=== PATIENT | female | born 1960 | race Caucasian/White ===

== ENCOUNTER 2016-07-26 20:15 | Inpatient (IN) | payer OTHER ==
[~2016-07-26] VITALS: Ht 160 cm; Wt 60.8 kg
[2016-07-26 21:33] LABS: HEMOGLOBIN 13.1 gm/dl (12.3-15.3); RED BLOOD COUNT 4.57 M/UL (4.00-5.10); WHITE BLOOD COUNT 6.6 K/UL (4.5-11.0)
[2016-07-26 22:05] LABS: BUN/CREATININE RATIO 20 (0-10)
[2016-07-27] MEDS ORDERED: EFFEXOR XR 150150 MG PO (19:30)
[2016-07-27] MEDS ORDERED: PROTONIX40 MG PO (19:31)
[2016-07-27] MEDS ORDERED: LEVOTHYROXINE75 MCG PO (19:31)
[2016-07-27] MEDS ORDERED: SIMVASTATIN20 MG PO (19:32)
[2016-07-27] MEDS ORDERED: ELAVIL 50 MG TA50 MG PO (19:32)
[2016-07-27] MEDS ORDERED: ZOFRAN4 MG PO (19:33)
[2016-07-27] MEDS ORDERED: BASAGLAR SQ (19:35)
[2016-07-28 04:04] LABS: HEMOGLOBIN 13.8 gm/dl (12.3-15.3); RED BLOOD COUNT 4.81 M/UL (4.00-5.10); WHITE BLOOD COUNT 6.6 K/UL (4.5-11.0)
[2016-07-28 04:21] LABS: BUN/CREATININE RATIO 22 (0-10)
[2016-07-29 04:19] LABS: HEMOGLOBIN 12.9 gm/dl (12.3-15.3); RED BLOOD COUNT 4.5 M/UL (4.00-5.10)
[2016-07-29 04:45] LABS: BUN/CREATININE RATIO 35 (0-10)
[2016-07-29] MEDS ORDERED: LEVAQUIN750 MG PO (12:45)
== END 2016-07-29 11:35 | disposition home or self-care (01) | DRG 690 ==
LOC: ER1 20:15 → ZEROF 07-27 01:35 → M/S 07-27 01:35
PROVIDERS: Hospitalist; Internal Medicine; Physician Assistant; ADMIT Internal Medicine
DX: N30.80 Other cystitis without hematuria (principal); N10 Acute pyelonephritis; E87.1 Hypo-osmolality and hyponatremia; E03.9 Hypothyroidism, unspecified; F41.9 Anxiety disorder, unspecified; E78.5 Hyperlipidemia, unspecified; E11.65 Type 2 diabetes mellitus with hyperglycemia; B96.20 Unspecified Escherichia coli [E. coli] as the cause of diseases classified elsewhere; Z79.899 Other long term (current) drug therapy
CPT/HCPCS: 36415; 80048; 80053; 80061; 81001; 82962; 83690; 84436; 84443; 85025; 85027; 87040; 87077; 87086; 87186; 93005; 96372; 96374; 96375; 99285; J0696; J1650; J1815; J2270; J2405; J7030; J7050; Q9962

== ENCOUNTER → 2021-02-04 | Outpatient (CLI) | payer OTHER ==
[~2021-02-04] MED LIST: BASAGLAR SQ; CYCLOBENZAPRINE10 MG PO; EFFEXOR XR 150150 MG PO; ELAVIL 50 MG TA50 MG PO; IBUPROFEN800 MG PO; LEVAQUIN750 MG PO; LEVOTHYROXINE75 MCG PO; PROTONIX40 MG PO; SIMVASTATIN20 MG PO; ZOFRAN4 MG PO
== END ==
LOC: US 08:00 → EXRD 08:00 → US 09:04 → KOH-I 10:45
DX: R09.89 Other specified symptoms and signs involving the circulatory and respiratory systems (principal); I73.9 Peripheral vascular disease, unspecified
CPT/HCPCS: 93880; 93922; 93925

== ENCOUNTER 2021-03-20 13:44 | Emergency (ER) | payer OTHER ==
[2021-03-20 16:05] LABS: HEMOGLOBIN 8.7 gm/dl (12.3-15.3); RED BLOOD COUNT 3.73 M/UL (4.00-5.10); WHITE BLOOD COUNT 10.1 K/UL (4.5-11.0)
[2021-03-21 21:53] LABS: ACINETOBACTER BAUMANNII Not Detected (Negative); CANDIDA ALBICANS Not Detected (Negative); CANDIDA KRUSEI Not Detected (Negative); CANDIDA TROPICALIS Not Detected (Negative); ENTEROCOCCUS Not Detected (Negative); ESCHERICHIA COLI Not Detected (Negative); HAEMOPHILUS INFLUENZAE Not Detected (Negative); KLEBSIELLA OXYTOCA Not Detected (Negative); KLEBSIELLA PNEUMONIAE Not Detected (Negative); KPC-CARBAPENEM-RESISTANCE GENE Not Detected (Negative); PROTEUS Not Detected (Negative); PSEUDOMONAS AERUGINOSA Not Detected (Negative); SERRATIA MARCESANS Not Detected (Negative); STAPHYLOCOCCUS AUREUS Not Detected (Negative); STREP AGALACTIAE (GROUP B) Not Detected (Negative); STREP PYOGENES (GROUP A) Not Detected (Negative); STREPTOCOCCUS Not Detected (Negative); vanA/B (VANCOMYCIN RESIST GENE Not Detected (Negative)
[2021-03-21 23:19] LABS: STAPHYLOCOCCUS DETECTED (Negative); mecA (METHICILLIN RESIST GENE DETECTED (Negative)
== END 2021-03-20 20:25 | disposition short-term general hospital (02) ==
LOC: ER1 13:44
PROVIDERS: Nurse Practitioner
DX: M00.9 Pyogenic arthritis, unspecified (principal); E11.9 Type 2 diabetes mellitus without complications; Z20.822 Contact with and (suspected) exposure to COVID-19
CPT/HCPCS: 71045; 73201; 80048; 83605; 85025; 86140; 87040; 87150; 96374; 96375; 99285; J2270; J2405; Q9967; U0002

== ENCOUNTER → 2021-05-13 | Outpatient (CLI) | payer OTHER ==
[2021-05-13 13:48] LABS: HEMOGLOBIN 10.9 gm/dl (12.3-15.3); RED BLOOD COUNT 4.18 M/UL (4.00-5.10)
[2021-05-14 10:15] LABS: CREATININE, URINE 56.4 mg/dL (Not Estab.)
== END ==
LOC: LAB 13:26
PROVIDERS: Family Medicine
DX: E11.9 Type 2 diabetes mellitus without complications (principal); E78.5 Hyperlipidemia, unspecified; Z79.4 Long term (current) use of insulin
CPT/HCPCS: 36415; 80053; 80061; 82043; 82570; 83735; 84443; 85027

== ENCOUNTER 2021-07-08 18:14 | Emergency (ER) | payer OTHER ==
[2021-07-08 22:09] LABS: RED BLOOD COUNT 3.65 M/UL (4.00-5.10); WHITE BLOOD COUNT 11.4 K/UL (4.5-11.0)
[2021-07-08 22:51] LABS: BUN/CREATININE RATIO 20 (0-10)
== END 2021-07-09 00:03 | disposition home or self-care (01) ==
LOC: ER1 18:14
PROVIDERS: Nurse Practitioner
DX: S40.012A Contusion of left shoulder, initial encounter (principal); S40.011A Contusion of right shoulder, initial encounter; S70.02XA Contusion of left hip, initial encounter; S70.01XA Contusion of right hip, initial encounter; E11.9 Type 2 diabetes mellitus without complications; Z79.4 Long term (current) use of insulin; W18.30XA Fall on same level, unspecified, initial encounter
CPT/HCPCS: 0240U; 36600; 71045; 73030; 73522; 73564; 80053; 82550; 82553; 82803; 84484; 85025; 93005; 99284

== ENCOUNTER 2021-07-13 19:07 | Emergency (ER) | payer OTHER ==
[2021-07-13 20:12] LABS: HEMOGLOBIN 9.4 gm/dl (12.3-15.3); RED BLOOD COUNT 3.41 M/UL (4.00-5.10)
[2021-07-13] MEDS ORDERED: OMNICEF 300 MG300 MG PO (22:26)
[2021-07-13] MEDS ORDERED: ZOFRAN 4 MG TAB4 MG PO (22:26)
== END 2021-07-13 22:51 | disposition home or self-care (01) ==
LOC: ER1 19:07
PROVIDERS: Physician Assistant Medical
DX: N39.0 Urinary tract infection, site not specified (principal); E11.65 Type 2 diabetes mellitus with hyperglycemia; Z79.4 Long term (current) use of insulin
CPT/HCPCS: 51702; 80053; 81001; 85025; 96374; 99283; J0696

== ENCOUNTER → 2021-08-19 | Outpatient (CLI) | payer OTHER ==
[~2021-08-19] MED LIST changes: +OMNICEF 300 MG300 MG PO; +ZOFRAN 4 MG TAB4 MG PO
[2021-08-19 12:12] LABS: HEMOGLOBIN 10.6 gm/dl (12.3-15.3); RED BLOOD COUNT 3.88 M/UL (4.00-5.10)
[2021-08-19 12:33] LABS: BUN/CREATININE RATIO 19 (0-10)
[2021-08-21 09:14] LABS: CREATININE, URINE 106.1 mg/dL (Not Estab.)
== END ==
LOC: LAB 11:31
PROVIDERS: Nurse Practitioner Family
DX: M79.605 Pain in left leg (principal); E78.5 Hyperlipidemia, unspecified; R79.89 Other specified abnormal findings of blood chemistry; R80.9 Proteinuria, unspecified; D64.9 Anemia, unspecified; I73.9 Peripheral vascular disease, unspecified; M51.37 Other intervertebral disc degeneration, lumbosacral region
CPT/HCPCS: 36415; 72100; 80053; 80061; 82043; 82570; 82607; 82728; 83540; 83550; 84439; 84443; 85025; 85045

== ENCOUNTER → 2021-11-14 | Outpatient (CLI) | payer OTHER | LOC: LAB 14:17 | PROVIDERS: Family Medicine | DX: I10 Essential (primary) hypertension (principal) | CPT/HCPCS: 36415; 80048 ==